=== PATIENT | female | born 1985 | race Caucasian/White ===

== ENCOUNTER 2017-11-11 07:04 | Emergency (ER) | payer BC, MEDICAID ==
[~2017-11-11] VITALS: Ht 154.9 cm; Wt 47.2 kg
--- NOTE | 2017-11-11 07:10 | NUR ---
BBRA 77 C/O VB THIS AM ON HER WAY TO HER OBGYN. . PT AOX4 RR EVEN AND UNLABORED. NO SOB NOTED. NO NVD AT THIS TIME. PT GOWNED AND PLACED ON MONITOR. PER RA PLACED IV ON LEFT AC 20G WITH 200CC NS TRANSFUSED [employer]. PT WAITING FOR MD CABRAL.
--- NOTE | 2017-11-11 07:22 | NUR ---
DR. MEDLEY AT BEDSIDE FOR PELVIC EXAM
[2017-11-11] MEDS ORDERED: IV NS 0.9% 1,000 ML BAG IV ONE (07:30)
--- NOTE | 2017-11-11 07:30 | NUR ---
DR. MEDLEY PROVIDED WITH FORMALIN.
[2017-11-11 07:53] LABS: BASOPHILS % (AUTO) 0.3 % (0.0-2.0); EOSINOPHILS % (AUTO) 0.4 % (0.0-6.0); HEMATOCRIT 35 % (33-45); LYMPHOCYTES # (AUTO) 1.2 /CMM (0.8-4.8); LYMPHOCYTES % (AUTO) 10.2 % (20.0-44.0); MEAN CORPUSCULAR HEMOGLOBIN 31 PG (26.0-33.0); MEAN CORPUSCULAR HGB CONC 34 g/dl (31.0-36.0); MEAN CORPUSCULAR VOLUME 91 fL (82-100); MONOCYTES # (AUTO) 0.4 /CMM (0.1-1.30); MONOCYTES % (AUTO) 3.3 % (2.0-12.0); NEUTROPHILS # (AUTO) 10.5 /CMM (1.8-8.9); NEUTROPHILS % (AUTO) 85.8 % (43.0-81.0); PLATELET COUNT (AUTO) 229 /CMM (150-450); RDW COEFFICIENT OF VARIATION 12.7 (11.5-15.0); RED BLOOD CELL COUNT(AUTO) 3.88 MIL/uL (4.0-5.2); WHITE BLOOD COUNT (AUTO) 12.2 K/uL (4.3-11.0)
[2017-11-11] MEDS ORDERED: KETOROLAC TROMETHAMINE 15 MG/ML VIAL ONE (07:55)
[2017-11-11] MEDS ORDERED: KETOROLAC TROMETHAMINE INJ 30 MG/ML VIAL IV ONE (08:00)
[2017-11-11] MEDS ORDERED: KETOROLAC TROMETHAMINE INJ 30 MG/ML VIAL IM ONE (08:00)
--- NOTE | 2017-11-11 08:10 | NUR ---
CALLED US TECH FOR FOLLOW UP. WILL BE HERE SOON.
--- NOTE | 2017-11-11 08:15 | NUR ---
PT ASSISTED TO CHANGE, CLEANED/CHANGED SOILED LINENS.
[2017-11-11] MEDS ORDERED: IBUPROFEN 600 MG TABLET PO ONE ×2 (09:08→09:30)
--- NOTE | 2017-11-11 09:13 | NUR ---
Patient discharged to home in stable condition. Written and verbal after care instructions given. Patient verbalizes understanding of instruction.
--- NOTE | 2017-11-11 09:13 | NUR ---
IV removed. Catheter intact and site benign. Pressure and 4x4 applied to site. No bleeding noted.
[2017-11-11 09:16] VITALS: BP 115/77
== END 2017-11-11 09:17 | disposition home or self-care (01) ==
LOC: ER 07:06
DX: O03.4 Incomplete spontaneous abortion without complication (principal); R42 Dizziness and giddiness
CPT/HCPCS: 36415; 76856; 84702; 85025; 86850; 96361; 96374; 99285; A4606; A6402; A6403; J1885; J7030; Z7610